=== PATIENT | female | born 1940 | race Caucasian/White ===

== ENCOUNTER 2017-12-29 10:07 | Inpatient (IN) | payer MEDICARE, OTHER, SELFPAY ==
[2017-12-24 09:55] VITALS: BMI 29.6
[2017-12-29] VITALS (13 sets, daily range): BP systolic 128–179; BP diastolic 53–81; PULSE 68–93; RESP 14–18; TEMP 36.1–36.8; O2SAT 93–100; BMI 29.6
--- NOTE | 2017-12-29 | DI.RAD.S_ITS ---
PROCEDURE: XR PELVIS 1-2V INDICATIONS: ORIF RIGHT HIP TECHNIQUE: 1 view of the lower pelvis acquired. COMPARISON: [facility] [place], [place], XR PELVIS WITH LATERAL HIP RIGHT, 11/19/2017, 15:23. FINDINGS: Bones: Patient is status post right hip arthroplasty, with hardware components in expected positions. The hip joint appears congruent. The visualized bony structures appear intact. Soft tissues: Overlying postoperative changes are noted. No suspicious soft tissue densities. IMPRESSION: Right hip prosthesis in anatomic alignment. Dictated by: Alvaro Tejada M.D. on 12/29/2017 at 14:10 Approved by: Alvaro Tejada M.D. on 12/29/2017 at 14:11
[2017-12-29] MEDS: LACTATED RINGERS 1,000 ML 42 ML IV ×2 (10:49→13:01)
[2017-12-29] MEDS: ACETAMINOPHEN 325 MG TABLET 975 MG PO (10:49)
[2017-12-29] MEDS: CELECOXIB 200 MG CAPSULE PO (10:50)
--- NOTE | 2017-12-29 11:47 | SUR.PREOP ---
SPOKE WITH DR. RINCON REGARDING CURRENT ORDER FOR ANCEF IN RELATION TO PT ALLERGY TO PCN. PER DR. RINCON OK TO CONTINUE WITH CURRENT PLAN TO USE ANCEF. COMMUNICATED THIS WITH CIRCULATING RN.
--- NOTE | 2017-12-29 11:50 | PM.PREOP ---
Pre-operative Note Interval Note Pre-op Check: History & Physical Reviewed by Physician and Changes
[2017-12-29] MEDS: CEFAZOLIN 1 GM VIAL IV ×2 (12:14→12:53)
[2017-12-29] MEDS: TRANEXAMIC ACID 1,000 MG VIAL 1000 MG INJ ×3 (12:30→13:13)
--- NOTE | 2017-12-29 12:48 | SUR.OPER ---
Left Lateral on padded OR bed. Gel axillary roll. Arms secured on padded armboard with pillow supporting top arm. Padded hip positioner braces x4 - anterior and posterior chest and pelvis. Additional gel pad used anterior pelvis. Gel pad under bottom leg from knee to foot and secured with tape over sheet.
[2017-12-29] MEDS: BUPIVACAINE LIPOSOME 266 MG/20 ML VIAL INJ ×2 (12:55)
--- NOTE | 2017-12-29 13:39 | SUR.OPER ---
right groin fold skin tears x3 noted, each approximately 1-2 long. Also, left abdominal fold skin tear noted, approximately [address] Davies noticed during patient positioning.
--- NOTE | 2017-12-29 14:07 | P.OP_ITS ---
Operative Date/Time/Diagnoses - Date of procedure: 12/29/17 Time of procedure: 14:01 Post-op diagnosis: same Procedure & Clinicians Procedure: Right total hip arthroplasty (CPT code 20976 with transportation assistant) Same procedure as scheduled: Yes Indications: Patient is an 77-year-old female with severe right hip DJD. The patient has pain with activities and at rest, limited ambulation and activity tolerance, difficulties with ADLs, and failure of conservative treatment. We have discussed the nature of condition, treatment options, risks and benefits, and patient elects to proceed with total hip arthroplasty and gives informed consent. Surgeon: Adan Davies Dealer Compliance Representative: Crow Echavarria Anesthesia Type: General and Spinal Operative Notes Closure Type: primary Specimen(s): none sent Implants & Drains: Acetabulum: Scott [employer]hew R3 acetabular component size 52 mm Femoral component: Scott [employer]hew Synergy stem size 12 with standard offset Femoral head: 36 mm + 0 cobalt chrome Estimated Blood Loss (mL): 100 Blood products transfused: none Procedure in detail: After satisfaction induction of anesthetic, and administration of IV antibiotics, the patient was positioned in the lateral decubitus position with all bony prominences well padded and pelvic position secured using a hip associate dentist positioning device. Right hip and lower extremity prepped and draped in the usual sterile fashion, 1st dose of intravenous tranexamic acid was administered, then a longitudinal incision was created centered over the greater trochanter and carried sharply through the skin and subcutaneous tissues down to the fascia hunter which was divided longitudinally and retracted with a Charnley retractor. External rotators visualize, cut, tagged, and retracted posteriorly, then the capsule was cut in a T-type fashion with the corners tagged and retracted. Hip was dislocated and femoral neck cut made according to preoperative templating. Acetabular retractors then placed, and the acetabular labrum and osteophytes were excised. The acetabulum was then sequentially reamed to 51 mm with an excellent circumferential ream and fit with the trial. The trial component was removed and a permanent size 52 mm Scott and Nephew R3 acetabular component was selected, positioned, and impacted with satisfactory position and fixation achieved. Permanent liner was then inserted with the elevated lip directed posteriorly. Soft tissue then removed off the lateral femoral neck in the lateral neck was entered using a box osteotome. T-handled reamers placed down the canal followed by sequential broaching to 12 with the final broach left in place for trial reduction which demonstrated excellent leg length, range of motion, and stability characteristics with a 36 mm +0 trial ball. The trial and broach were removed, and a permanent size 12 Scott and Nephew Synergy stem was selected and inserted with excellent position and fixation achieved. Another trial reduction yielded the above characteristics so the trial ball was exchanged for a permanent 36 mm +0 cobalt chrome ball. The hip was irrigated and reduced and excellent leg length range of motion and stability characteristics were achieved and maintained. Periarticular tissues were infiltrated with Exparel. The hip was copiously irrigated, and the capsule repaired with #2 Ethibond, and the piriformis was repaired back to the greater trochanter with the same. Fascia hunter closed with interrupted #1 Ethibond sutures, and the subcutaneous tissues were closed in 2 layers of 0 Vicryl and 2 0 Vicryl. Skin was closed with davis and sterile dressings applied. Second dose of tranexamic acid was administered intravenously, and the anesthetic was terminated. Complications: none Condition: stable Disposition: PACU Plan for aftercare: Patient will be admitted to the acute care [facility], and anticipate discharge on postop day 1-2 with follow-up in office in 10-14 days. Outpatient physical therapy will be arranged and patient will continue to observe posterior hip precautions. Patient will continue use of postoperative Lovenox for 10 days postop.
[2017-12-29] MEDS: LACTATED RINGERS 1,000 ML 100 ML IV ×2 (15:03→15:05)
--- NOTE | 2017-12-29 15:07 | PC.NURSE ---
POST OP ARRIVAL 1440 - arrived awake, states no pain at this time, pt has sensation at lower groin, starting to feel some sensation r upper thigh, unable to wiggle r toes, can move l foot and ankle wave, zinc furnace charger showed where pt had a drape at her abd skin fold and top of r thigh that left a small slit like tear, placed some antibiotic ointment l fold, r open to air, has bulky surgical barrier dsg r thigh, ra 96%, hr 72, prince ice chips, scd placed.
[2017-12-29] MEDS: ONDANSETRON 4 MG ODT PO ×2 (16:51→21:24)
--- NOTE | 2017-12-29 17:40 | PC.NURSE ---
Addendum entered by Wilma Bruce R.N. 12/29/17 22:45: At 2030 patient reported need to void. Reports numb from waist to knee, can feel sensation of nurse hand on her leg. Also reports pain increasing to 6 or 7/10. Medicated with one percocet per prn orders. Due to numbness and pain, we attempted bedpan. She was unable to void, she cryed during repositioning to get her onto bedpan. After rest period became calm again. Bladder scan = >999. Ely placed, she tolerated procedure well. At 2100 reported pain only a 0.5. 2215: Reporting nausea, saying this happens every time I take pain medication. Reglan 10 mg given IV. Since then she has been dozing with flacc scale of zero. Original Note: Karyna awake, Ox3, drowsy and c/o dizziness & nausea if I sit up at all. Scheduled Zofran given late as pharmacy did not stock drawer until after 1600. HOB laid to 8 degrees from [id number], now sitting up at 45 degrees & denies dizziness or nausea. Refuses any PO intake other than ice chips at this time. C/o slight sore throat, post-op teaching explained. Refused hard candy and said that ice chips help. Right hip drsg is CDI, reports numbness & weakness to both legs, can wiggle toes & move feet slightly. Wearing bilateral calf SCD's. IV LR infusing at 100 ml/hour, IV to L hand is patent & infusing with no difficulty. Pt denied pain. I talked with her about pain med options & pain mgmt teaching, she said oh no, I can't take pills -- for all my surgeries they give me shots or something thru the IV. Said last surgery 40 years ago. Post-op teaching & med management explained, aware of prn orders & instructed to call nurse when she starts feeling pain. I notified on-call surgeon to notify that there were no post-op antibiotics scheduled on AUG, Rossy JACOB gave orders for 2 doses of IV Ancef q8 hours apart. On my AUG screen I cannot see that Ancef was given in operative setting, but our pharmacist Gadiel able to clarify that Ancef was given prior to surgery.
[2017-12-29] MEDS: ACETAMINOPHEN 325 MG TABLET 650 MG PO (18:32)
[2017-12-29] MEDS: OXYCODONE/ACETAMINOPHEN 5/325 TABLET 1 TAB PO (20:12)
[2017-12-29] MEDS: CEFAZOLIN 1 GM/50 ML FROZ.PIGGY IV (20:27)
[2017-12-29] MEDS: DOCUSATE 100 MG CAPSULE PO (21:23)
[2017-12-29] MEDS: METOCLOPRAMIDE 10 MG/2 ML INJ IV (22:21)
[2017-12-30] VITALS (8 sets, daily range): BP systolic 103–153; BP diastolic 46–72; PULSE 62–69; RESP 16–25; TEMP 35.8–37.4; O2SAT 93–98
[2017-12-30] MEDS: ONDANSETRON 4 MG ODT PO (00:12)
[2017-12-30] MEDS: hydrOXYzine pamoate 25 MG CAPSULE PO ×3 (00:49→21:09)
[2017-12-30] MEDS: LACTATED RINGERS 1,000 ML 100 ML IV (01:50)
[2017-12-30] MEDS: ACETAMINOPHEN 325 MG TABLET 650 MG PO (04:16)
[2017-12-30] MEDS: CEFAZOLIN 1 GM/50 ML FROZ.PIGGY IV (04:17)
[2017-12-30] MEDS: OXYCODONE/ACETAMINOPHEN 5/325 TABLET 1 TAB PO ×3 (05:53→19:33)
[2017-12-30 05:56] LABS: Hematocrit 36.6 % (36-46); Hemoglobin 12.4 g/dL (12.0-16.0)
--- NOTE | 2017-12-30 06:43 | PC.NURSE ---
Shift note [id number] Pt complained of nausea at start of shift. Pt reports pain level around 2- 3throughout shift. Provided pt 1 tab oxycodone.
[2017-12-30] MEDS: LOSARTAN 25 MG TABLET PO (08:17)
[2017-12-30] MEDS: DOCUSATE 100 MG CAPSULE PO ×2 (08:17→21:09)
[2017-12-30] MEDS: ENOXAPARIN 40 MG/0.4 ML SYRINGE SUBCUT (08:18)
--- NOTE | 2017-12-30 09:33 | PC.NURSE ---
AM Shift IV fluids continue to evaluate breakfast PO intake. Ely draining to gravity and will assess need for removal after AM PT session. Patient apprehensive about narcotic pains pains due to previous surgery where she was severely nauseated. Spoke to her about her pain management options.
--- NOTE | 2017-12-30 11:34 | PT.IIE ---
Current Diagnoses Unilateral primary osteoarthritis, right hip (12/29/17) Surgery Performed Operation Date: 12/29/17 11:45 Actual Procedures p Total Hip Arthroplasty(Right) - Adan Davies MD Surgical History (Last Updated 12/24/17 @ 10:16 by Saskia Yepez RN) History of partial hysterectomy (Acute) Hx of cholecystectomy (Acute) Hx of tubal ligation (Acute) Medical History (Last Updated 12/24/17 @ 10:16 by Saskia Yepez RN) Anxiety (Acute) Arthritis (Acute) Bipolar 1 disorder (Acute) Depression (Acute) Easy bruisability (Acute) HTN (hypertension) (Acute) Hypoglycemia (Acute) Nausea (Acute) Pneumonia (Acute) Sinusitis (Acute) Physical Therapy Inpatient Evaluation/Re-Eval Medical Review Prior Functional Status Medical History Reviewed Yes Diet/Fluid Consistency Regular Communication no known deficits Mobility and Gait mod ind with FWW inside her home and 4WW outside her home, but was really struggling to walk [place] to the dining olmos. Prior Functional Level (Other details) denies any falls in the past few years Social History Household Members none Living Arrangements [facility]dc Facility Number of Floors (Floors) One Floor Number of Stairs To Enter/Railing? 0STE Home Environment Standard Height Toilet Walk in Shower Home Equipment Front Wheel Walker Four Wheel Walker Straight Cane Sock Aid Hospital Bed Employment Status Retired Additional Social History Comment Lives at [facility] in a stand alone [facility], reports it takes about 10 minutes to walk to the dining olmos for meals. Physical Therapy Current Condition Current Condition Evaluation Date 12/30/17 Treatment Diagnosis R post KAE Onset Date 12/29/17 Precautions Posterior Hip Precautions No Hip Flexion > 90 degrees No Hip Internal Rotation No Hip Adduction Weight Bearing Status Weight Bearing Status Weight Bear as Tolerated Subjective Physical Therapy Visit Type Type Initial Evaluation Visit Start Time 08:40 Visit Stop Time 10:40 Total Visit Minutes 85 Notes Total morning session was split into two shorter sessions Physical Therapy Visit Comments Patient Comments Pt reports doing well, minimal pain at rest, ready to get going. Patient/Caregiver Goals Pt hoping to be able to go to rehab unless she's completely independent by time of discharge. Pt concerned as she has a long way to walk for meals and doesn't have anyone to come stay with her to help. Therapy Pain Assessment Pain When Pain Assessed During Mobility Pain Present Pain Present Pain Reported Location Right Lateral Hip Intensity 6 Scale Used Numeric (1 - 10) Description Aching Dull Tender Throbbing Pain Behaviors Wincing Pain Management Techniques Apply Cold Modification of Treatment Re-positioning Timing of Activity with Medications PT-Bed Mobility Assessment Supine to Sit Supine to Sit Minimal Assistance Scooting Scooting to Edge of Bed Minimal Assistance PT-Transfer Assessment Sit to and From Stand Sit to and from Stand Contact Guard Assistance 1 Person Assistance Use of Upper Extremities Equipment Transfer Assistive Device Gait Belt Front Wheeled Walker Transfers Transfer Destination Chair Transfer Technique Stand Step Pivot Transfer Ability Level of Assist Contact Guard Assistance 1 Person Assistance Use of Upper Extremities Comments Mobility Comments Pt needing cues to get close enough to the chair before sitting down but was otherwise very stable on her feet and only needed CGA. Gait Assessment Gait Gait Assistance Required: Contact Guard Assist Distance (Feet) (feet) 10 Assistive Devices Assistive Device Gait Belt Front Wheeled Walker Gait Deviations General Gait Pattern Antalgic Decreased Stride Length Decreased Feet Clearance Step-to Gait Factors Limiting Gait Function Factors Limiting Gait Function Decreased Strength Pain Comments Gait Comments Pt hesistant to put more weight through the RLE but able to compensate well with BUE on walker. After taking a few steps pt was allowing more weight through the RLE but definitely still babying it. Pt needing to use step-to gait pattern due to pain and weakness, but remained very steady while walking. Pt declined to try to walk further at this time. Stair Climbing Assessment Comments Stair Climbing Comments not assessed PT-Balance Assessment Sitting Balance and Reactions Static Sitting Balance Ability Normal Dynamic Sitting Balance Ability Good Standing Balance and Reactions Static Standing Balance Ability Good Dynamic Standing Balance Ability Fair Device Used FWW Orientation Orientation/Cognition Level of Alertness Alert Orientation Name Age Birthday Month Date Year Day of Week Place Situation Language Function Ability No Deficits Noted Safety Awareness Understands Safety Issues Memory Description No Deficits Noted Gross Range of Motion Upper Extremity ROM Assessment Within Functional Limits Lower Extremity ROM Impairments WFL as allowed by post hip precautions Strength Upper Extremity Strength Assessment Within Functional Limits Comments Strength Comments BLE strength not tested, but LLE WFL and RLE significantly limited by pain Physical Therapy Treatment Exercises Exercises Ankle Pumps Gluteal Sets Quad Sets Heel Slides Supine Hip Abduction Education Education Provided Precautions Weight Bearing Status Post-Op Packet Safety PT Summary Assessment and Plan Potential Rehabilitation Potential Good Status of Condition at Evaluation Evolving Summary Impairments Pain Strength Balance Bed Mobility Transfers Gait Activity Tolerance Progress Towards Goals Progressing Toward Goals Assessment Summary POD#1 R post KAE. Pt is able to mobilize well once out of bed but definitely needs assist for bed mobility. Pt's walking tolerance and quality is impaired at this time, making pt unsafe to be mobilizing without assistance. Pt does have potential for functional improvement but is not safe to discharge home at this time. It is recommended for pt to continue participating in acute PT with transition to SNF rehab prior to return home. Patient does have potential to discharge directly home, but it will depend on how quickly the patient progresses, especially with gait tolerance. Goals Bed Mobility Goal Independent Transfer Goal Independent Front Wheeled Walker Four Wheeled Walker Gait Goal Independent Front Wheel Walker Four Wheel Walker Gait Distance community distances over 300ft Days to Meet Goals 3 Frequency of Treatment Frequency Of Treatment Twice a Day Treatment Plan Physical Therapy Treatment Plan Bed Mobility Training Transfer Training Gait Training Therapeutic Exercise Discharge Planning Other Recommendations and Next Treatment progress gait distance, work Focus on bed mobility Recommendations To Nursing Amount of Assist Needed 1 Person Assist Discharge Recommendations PT Discharge Recommendations SNF Rehab
--- NOTE | 2017-12-30 15:03 | P.PN_ITS ---
Subjective Date Patient Seen: 12/30/17 Time Patient Seen: 15:00 Interval history: POD #1 status post right total hip arthroplasty with Dr. Davies. Her pain is well controlled. She has increased pain with ambulation with physical therapy. She is taking Lovenox for DVT prophylaxis. She lives alone and discussed with Dr. Davies in clinic that she would likely need [facility] for continued care as she has in the past after procedures. Ely was placed last night for urinary retention. She has a history of urinary retention. Denies chest pain, or shortness breath. Exam Vital Signs (past 8 hours): - 12/30/17 07:25 12/30/17 08:17 12/30/17 11:30 Temperature 98.4 F 98.1 F Pulse Rate 65 65 69 Respiratory Rate 17 16 Blood Pressure 147/69 H 153/65 H 135/64 H Pulse Oximetry 98 97 Oxygen Delivery Method Nasal Cannula Oxygen Flow Rate 2 Narrative Exam Narrative: Patient sitting up in bed in no acute distress. She is alert and oriented x3. Dressing on right hip is CDI. Calves are soft, compressible, nontender bilaterally pulses are symmetrical. Sensation intact to light touch throughout bilateral lower extremities. She is able to actively dorsiflex and plantar flex. Objective Labs Result Diagrams: 12/30/17 05:42 Labs: Laboratory Results - last 24 hr 12/30/17 05:42 Hgb 12.4 Hct 36.6 Assessment & Plan Post-op (1) S/P total hip arthroplasty: Current Visit: Yes Status: Acute (2) Urinary retention: Current Visit: Yes Status: Acute Postoperative Procedures Operation Date: 12/29/17 11:45 Actual Procedures Side Surgeon p Total Hip Arthroplasty Right Adan Davies MD POD #1 status post right total hip arthroplasty with Dr. Davies. Given her history of urinary retention in the past, will leave Ely in place until tomorrow morning. Continue current pain management. Continue ambulation with physical therapy. Continue Lovenox for DVT prophylaxis. Will anticipate patient needing SNF, will continue to follow. Discharge possibility of SNF versus home health services. Time Spent With Patient less than 15 minutes
--- NOTE | 2017-12-30 15:14 | CM.DANOTE ---
DCP/Assessment: Reviewed chart. Patient is a 77yr old female admitted to [facility] for elective right KAE performed on 12-29-[address] Davies. Primary payor is 1)Medicare 2)Commercial. PCP is Dr. Dodge. Met with patient explained CM/SW role. Patient alert and oriented, eating lunch at time of visit. Patient reports that she lives independently at [facility] in [place]. Patient indicates that she plans to go to SNF for rehab at time of d/c from [facility] CHAUFFEUR MOTORBUS reviewed Dr. Davies's progress note indicating patient most likely to d/c home within next 1-2dys. Patient reports that's wrong, I'm going to rehab. Notified patient that under Medicare guidelines she would need to qualify for SNF and meet all requirements. Patient reports that I will. SNF list left with patient to review for SNF choice if requirements met. Reviewed PT note from today. Current recommendation is SNF. Spoke with PA/Dixie from orthopedic group. She is aware of patient's desire to go to SNF and is in agreement that patient will have to qualify. At this time Dixie reports that patient has urinary retention and she anticipates that patient most likely will remain hospitalized for 3 midnights. Dixie reports that she will discuss further with Dr. Davies re: patient's preference in d/c plan vs. meeting insurance requirements. P: Pending. CM team to follow up with patient on 12-31-17 re: SNF choice. RUTH Oconnor Discharge Planning/Care Management CM Discharge Assessment Start: 12/30/17 15:12 Freq: Status: Active Protocol: Document 12/30/17 15:12 CHRIS (Rec: 12/30/17 15:14 CHRIS [id number]) Discharge Planning Assessment Assigned Manager User Experience RUTH/Paz History Provided By Patient Has Patient been admitted in last 30 No days? Prior Living Arrangements Long Term Facility Household Members none Willing to Return to Facility? [facility] Independent with ADL's Yes Is patient alert and oriented? Yes DME Already Rented / Owned FWW / Walker Patient Discharge Plan Description Fdc Facility Discharge Plan Fdc Facility If patient plan is SNF: Has PASSR been No completed? Review Status In Process Next Review Type Continued Stay Review
--- NOTE | 2017-12-30 15:34 | PT.IPTN ---
Current Diagnoses Unilateral primary osteoarthritis, right hip (12/29/17) Retention of urine, unspecified (12/29/17) Presence of unspecified artificial hip joint (12/29/17) Surgery Performed Operation Date: 12/29/17 11:45 Actual Procedures p Total Hip Arthroplasty(Right) - Adan Davies MD Physical Therapy Treatment Note Physical Therapy Current Condition Current Condition Evaluation Date 12/30/17 Treatment Diagnosis R post KAE Onset Date 12/29/17 Precautions Posterior Hip Precautions No Hip Flexion > 90 degrees No Hip Internal Rotation No Hip Adduction Weight Bearing Status Weight Bearing Status Weight Bear as Tolerated Subjective Physical Therapy Visit Type Type Treatment Note Visit Start Time 14:15 Visit Stop Time 15:00 Total Visit Minutes 45 Physical Therapy Visit Comments Patient Comments Pt reports getting cranky after having to sit up in her chair without being able to recline the backrest (pt recliner is broken). A new recliner is now in pt's room. Therapy Pain Assessment Pain When Pain Assessed During Mobility Pain Present Pain Present Pain Reported Location Right Lateral Hip Intensity 6 Scale Used Numeric (1 - 10) Description Aching Dull Tender Throbbing Pain Behaviors Wincing Pain Management Techniques Apply Cold Modification of Treatment Re-positioning Timing of Activity with Medications Physical Therapy Treatment Exercises Exercises Ankle Pumps Gluteal Sets Quad Sets Heel Slides Supine Hip Abduction Short Arc Quads Education Education Provided Precautions Weight Bearing Status Post-Op Packet Safety PT Summary Assessment and Plan Potential Rehabilitation Potential Good Status of Condition at Evaluation Evolving Summary Assessment Summary Pt too tired to get up out of bed this session but agreeable to do exercises in bed. Pt able to perform additional strengthening exercises with much less assist than last session
[2017-12-31 01:10] VITALS: O2SAT 98
[2017-12-31] MEDS: OXYCODONE/ACETAMINOPHEN 5/325 TABLET 1 TAB PO ×5 (01:10→19:26)
--- NOTE | 2017-12-31 02:53 | PC.NURSE ---
Assumed care of pt form outgoing shift at 2300 7-3. Pt asleep at this time. belongings and call light within reach. bed alarm on. side rails upx3. Pt breathing regularly. will continue to monitor 0100- pt called asking for pain medication. pain 6/10, only 3/10 if pt doesn't move leg. IS instructions given with demonstration. and pt able to use Is proficiently now. Pt only able to breathe in about 500-700 on IS measurements. Pt did multiple repetitions. Pt compliant with med pass, denied nausea. given crackers and more water. discussed plan of care for noc with pt. removing foster at 0600 this am. pt verbalized understanding. Pt denied further needs at this time. will continue to monitor pt for safety. belongings and call light within reach.
[2017-12-31 06:04] VITALS: BP 116/54; PULSE 63; RESP 16; TEMP 37; O2SAT 92
[2017-12-31] MEDS: METOCLOPRAMIDE 10 MG/2 ML INJ IV (06:42)
[2017-12-31 07:45] VITALS: BP 118/67; PULSE 63; RESP 16; TEMP 36.6; O2SAT 97
[2017-12-31] MEDS: DOCUSATE 100 MG CAPSULE PO ×2 (08:41→19:28)
[2017-12-31] MEDS: ENOXAPARIN 40 MG/0.4 ML SYRINGE SUBCUT (08:41)
[2017-12-31] MEDS: LOSARTAN 25 MG TABLET PO (08:42)
--- NOTE | 2017-12-31 08:49 | PM.PNPO.1 ---
Subjective Date Patient Seen: 12/31/17 Time Patient Seen: 08:49 Interval history: Patient's pain is moderate to severe. Patient needed Dilaudid this morning to control her pain. Pain currently improved. Denies fever or chills. No nausea vomiting. Patient does not have anybody home to assist her and would like to go to [facility]. Otherwise without complaints this morning. Exam Vital Signs (past 8 hours): - 12/31/17 01:10 12/31/17 06:04 12/31/17 07:45 Temperature 98.6 F 97.9 F Pulse Rate 63 63 Respiratory Rate 16 16 Blood Pressure 116/54 L 118/67 Pulse Oximetry 98 92 97 Oxygen Delivery Method Room Air Oxygen Flow Rate 0 Narrative Exam Narrative: Pleasant 77-year-old female having breakfast in bed in no apparent distress. Right hip dressing is clean, dry and intact. Motor functions intact distal right lower extremity. Sensation intact to light touch right lower extremity. Objective Labs Result Diagrams: 12/30/17 05:42 Assessment & Plan Post-op Postoperative Procedures Operation Date: 12/29/17 11:45 Actual Procedures Side Surgeon p Total Hip Arthroplasty Right Adan Davies MD POD 2:Patient progressing slower than expected status post right total hip arthroplasty. Secondary to pain issues and lower extremity weakness the patient has not progressed as expected with rehab. She will mobilize with physical therapy today. Likely discharge to [facility] tomorrow. Time Spent With Patient less than 15 minutes
--- NOTE | 2017-12-31 08:53 | P.PN_ITS ---
Subjective Date Patient Seen: 12/31/17 Time Patient Seen: 08:49 Interval history: Patient's pain is moderate to severe. Patient needed Dilaudid this morning to control her pain. Pain currently improved. Denies fever or chills. No nausea vomiting. Patient does not have anybody home to assist her and would like to go to long-term facility for rehab. Otherwise without complaints this morning. Exam Vital Signs (past 8 hours): - 12/31/17 01:10 12/31/17 06:04 12/31/17 07:45 Temperature 98.6 F 97.9 F Pulse Rate 63 63 Respiratory Rate 16 16 Blood Pressure 116/54 L 118/67 Pulse Oximetry 98 92 97 Oxygen Delivery Method Room Air Oxygen Flow Rate 0 Narrative Exam Narrative: Pleasant 77-year-old female having breakfast in bed in no apparent distress. Right hip dressing is clean, dry and intact. Motor functions intact distal right lower extremity. Sensation intact to light touch right lower extremity. Objective Labs Result Diagrams: 12/30/17 05:42 Assessment & Plan Post-op Postoperative Procedures Operation Date: 12/29/17 11:45 Actual Procedures Side Surgeon p Total Hip Arthroplasty Right Adan Davies MD POD 2:Patient progressing slower than expected status post right total hip arthroplasty. Secondary to pain issues and lower extremity weakness the patient has not progressed as expected with rehab. She will mobilize with physical therapy today. Likely discharge to long-term facility tomorrow. Time Spent With Patient less than 15 minutes
--- NOTE | 2017-12-31 11:17 | PT.IPTN ---
Current Diagnoses Unilateral primary osteoarthritis, right hip (12/29/17) Retention of urine, unspecified (12/29/17) Presence of unspecified artificial hip joint (12/29/17) Surgery Performed Operation Date: 12/29/17 11:45 Actual Procedures p Total Hip Arthroplasty(Right) - Adan Davies MD Physical Therapy Treatment Note M2 PT-IP Current Condition Start: 12/30/17 11:08 Freq: NEEDED Status: Active Protocol: Document 12/31/17 11:05 [facility] (Rec: 12/31/17 11:14 [facility] [id number]) Physical Therapy Current Condition Current Condition Evaluation Date 12/30/17 Treatment Diagnosis R post KAE Onset Date 12/29/17 Precautions Posterior Hip Precautions No Hip Flexion > 90 degrees No Hip Internal Rotation No Hip Adduction Weight Bearing Status Weight Bearing Status Weight Bear as Tolerated M3 PT-IP Subjective Start: 12/30/17 11:08 Freq: NEEDED Status: Active Protocol: Document 12/31/17 11:05 [facility] (Rec: 12/31/17 11:14 [facility] [id number]) Subjective Physical Therapy Visit Type Type Treatment Note Visit Start Time 10:00 Visit Stop Time 10:45 Total Visit Minutes 45 Number of FRONT SIGHT ATTACHER Visits 0 Physical Therapy Visit Comments Patient Comments Karyna reports she needs to get up and use the commode as catheter was taken out earlier this am Patient/Caregiver Goals The patients goals continue to be SNF rehab Therapy Pain Assessment Pain When Pain Assessed During Mobility Pain Present Pain Present Pain Reported Location Right Lateral Hip Intensity 6 Scale Used Numeric (1 - 10) Description Aching Dull Tender Throbbing Pain Behaviors Wincing Pain Management Techniques Apply Cold Modification of Treatment Re-positioning Timing of Activity with Medications M4 PT-IP Mobility and Gait Start: 12/30/17 11:08 Freq: NEEDED Status: Active Protocol: Document 12/31/17 11:05 [facility] (Rec: 12/31/17 11:14 [facility] [id number]) PT-Bed Mobility Assessment Supine to Sit Supine to Sit Minimal Assistance Scooting Scooting to Edge of Bed Minimal Assistance PT-Transfer Assessment Sit to and From Stand Sit to and from Stand Contact Guard Assistance 1 Person Assistance Use of Upper Extremities Equipment Transfer Assistive Device Gait Belt Front Wheeled Walker Transfer Ability Level of Assist Contact Guard Assistance 1 Person Assistance Use of Upper Extremities Comments Mobility Comments improved mobility and good awareness this am of backing up to chair. Needs verbal cues to stand up straight as she tends to lean forward on the walker Gait Assessment Gait Gait Assistance Required: Contact Guard Assist Distance (Feet) (feet) 10 Assistive Devices Assistive Device Gait Belt Front Wheeled Walker Gait Deviations General Gait Pattern Antalgic Decreased Stride Length Decreased Feet Clearance Step-to Gait Factors Limiting Gait Function Factors Limiting Gait Function Decreased Strength Pain Comments Gait Comments improved ability to place weight through the right LE today PT-Balance Assessment Sitting Balance and Reactions Static Sitting Balance Ability Normal Dynamic Sitting Balance Ability Good Standing Balance and Reactions Static Standing Balance Ability Good Dynamic Standing Balance Ability Fair Device Used FWW M5 PT-IP Objective Assessments Start: 12/30/17 11:08 Freq: NEEDED Status: Active Protocol: Document 12/31/17 11:05 [facility] (Rec: 12/31/17 11:14 [facility] [id number]) Gross Range of Motion Lower Extremity ROM Impairments WFL as allowed by post hip precautions M6 PT-IP Treatment Start: 12/30/17 11:08 Freq: NEEDED Status: Active Protocol: Document 12/31/17 11:05 [facility] (Rec: 12/31/17 11:14 [facility] [id number]) Physical Therapy Treatment Exercises Exercises Ankle Pumps Gluteal Sets Quad Sets Heel Slides Supine Hip Abduction Short Arc Quads Education Education Provided Precautions Weight Bearing Status Post-Op Packet Safety Other Treatments Other Treatment Performed transfer from the bed to sitting at edge of bed, sit- stand with CGA, the patient ambulated a few steps to bedside commode and transfered to sitting with CGA, she sat for 10 minutes on the commode, she restood to adjust the commode height and then sat again to try and void. Then sit-stand with fww and gait in room. Transfer to the bedside chair and legs were elevated , pillow was placed between knees and call light was given to the patient M7 PT-IP Assessment and Plan Start: 12/30/17 11:08 Freq: NEEDED Status: Active Protocol: Document 12/31/17 11:05 [facility] (Rec: 12/31/17 11:14 [facility] [id number]) PT Summary Assessment and Plan Potential Rehabilitation Potential Good Status of Condition at Evaluation Evolving Summary Impairments Pain Strength Balance Bed Mobility Transfers Gait Activity Tolerance Progress Towards Goals Progressing Toward Goals Assessment Summary POD#2 R post KAE. Pt is able to mobilize well to get out of bed and is doing better with transfers. She is aware of her hip precautions. Pt's walking tolerance and quality is impaired at this time, making pt unsafe to be mobilizing without assistance. Pt does have potential for functional improvement but is not safe to discharge home at this time. It is recommended for pt to continue participating in acute PT with transition to SNF rehab prior to return home. Goals Bed Mobility Goal Independent Transfer Goal Independent Front Wheeled Walker Four Wheeled Walker Gait Goal Independent Front Wheel Walker Four Wheel Walker Gait Distance community distances over 300ft Days to Meet Goals 3 Frequency of Treatment Frequency Of Treatment Twice a Day Treatment Plan Physical Therapy Treatment Plan Bed Mobility Training Transfer Training Gait Training Therapeutic Exercise Discharge Planning Other Recommendations and Next Treatment progress gait distance, work Focus on bed mobility Recommendations To Nursing Amount of Assist Needed 1 Person Assist Discharge Recommendations PT Discharge Recommendations SNF Rehab
--- NOTE | 2017-12-31 12:04 | CM.DPC ---
Addendum entered by RUTH Cooper 12/31/17 12:22: ADD: Per [facility], [facility] can accept the pt at discharge. SW updated pt bedside and pt very appreciative. Plan: SW to follow for d/c to [facility] when medically stable, possibly tomorrow . RUTH Cooper Original Note: DCP Cont: Per Ortho MD, pt likely needing SNF tomorrow if medically stable. Per PT, recommending SNF rehab prior to return home to [facility]. SW met bedside with pt and explained role and followed up on previous SW discussion with pt on SNF rehab and SNF Choice List. Pt confirms that her preference is SNF before safe d/c back home. Pt states that she and her daughter reviewed the SNF Choice List and preference is 1) [facility] 2)[facility]. SW inquired about updating her Dtr Laura ([phone]) and pt declined stating her Dtr has a big 31 December republican she's hosting today and pt will update her via phone herself. SW called [facility] admissions with new referral and faxed clinicals for review and completed PASRR. Plan: SW to follow for [facility] review of pt for possible placement tomorrow if medically stable. RUTH Cooper
--- NOTE | 2017-12-31 14:10 | PT.IPTN ---
Current Diagnoses Unilateral primary osteoarthritis, right hip (12/29/17) Retention of urine, unspecified (12/29/17) Presence of unspecified artificial hip joint (12/29/17) Surgery Performed Operation Date: 12/29/17 11:45 Actual Procedures p Total Hip Arthroplasty(Right) - Adan Davies MD Physical Therapy Treatment Note M2 PT-IP Current Condition Start: 12/30/17 11:08 Freq: NEEDED Status: Active Protocol: Document 12/31/17 11:05 [facility] (Rec: 12/31/17 11:14 [facility] [id number]) Physical Therapy Current Condition Current Condition Evaluation Date 12/30/17 Treatment Diagnosis R post KAE Onset Date 12/29/17 Precautions Posterior Hip Precautions No Hip Flexion > 90 degrees No Hip Internal Rotation No Hip Adduction Weight Bearing Status Weight Bearing Status Weight Bear as Tolerated M3 PT-IP Subjective Start: 12/30/17 11:08 Freq: NEEDED Status: Active Protocol: Document 12/31/17 14:10 [facility] (Rec: 12/31/17 15:30 [facility] [id number]) Subjective Physical Therapy Visit Type Type Treatment Note Visit Start Time 13:45 Visit Stop Time 14:10 Total Visit Minutes 25 Number of [employer]MENTARY [employer] REGIST[employer]AR Visits 1 Physical Therapy Visit Comments Patient Comments Pt states that she needs to use the bathroom. Therapy Pain Assessment Pain When Pain Assessed During Mobility Pain Present Pain Present Pain Reported Location Right Lateral Hip Intensity 7 Scale Used Numeric (1 - 10) Pain Behaviors Guarding Moaning Wincing Pain Management Techniques Apply Cold Re-positioning M4 PT-IP Mobility and Gait Start: 12/30/17 11:08 Freq: NEEDED Status: Active Protocol: Document 12/31/17 14:10 [facility] (Rec: 12/31/17 15:30 [facility] [id number]) PT-Transfer Assessment Sit to and From Stand Sit to and from Stand Contact Guard Assistance Minimal Assistance 1 Person Assistance Use of Upper Extremities Equipment Transfer Assistive Device Gait Belt Front Wheeled Walker Transfers Transfer Destination Chair Toilet Transfer Ability Level of Assist Contact Guard Assistance 1 Person Assistance Use of Upper Extremities Comments Mobility Comments Pt need increase in assistance with sit to stand from toilet vs chair. Gait Assessment Gait Gait Assistance Required: Contact Guard Assist Distance (Feet) (feet) 15 Assistive Devices Assistive Device Gait Belt Front Wheeled Walker Gait Deviations General Gait Pattern Antalgic Decreased Stride Length Decreased Feet Clearance Step-to Gait Factors Limiting Gait Function Factors Limiting Gait Function Decreased Strength Pain M5 PT-IP Objective Assessments Start: 12/30/17 11:08 Freq: NEEDED Status: Active Protocol: Document 12/31/17 11:05 [facility] (Rec: 12/31/17 11:14 [facility] [id number]) Gross Range of Motion Lower Extremity ROM Impairments WFL as allowed by post hip precautions M6 PT-IP Treatment Start: 12/30/17 11:08 Freq: NEEDED Status: Active Protocol: Document 12/31/17 14:10 [facility] (Rec: 12/31/17 15:30 [facility] [id number]) Physical Therapy Treatment Exercises Exercises Ankle Pumps Gluteal Sets Quad Sets Short Arc Quads Education Education Provided Precautions Weight Bearing Status M7 PT-IP Assessment and Plan Start: 12/30/17 11:08 Freq: NEEDED Status: Active Protocol: Document 12/31/17 14:10 [facility] (Rec: 12/31/17 15:30 [facility] [id number]) PT Summary Assessment and Plan Summary Assessment Summary Pt had increase in pain with mobility. She needed increase in cues for gait technique. Frequency of Treatment Frequency Of Treatment Twice a Day Treatment Plan Physical Therapy Treatment Plan Bed Mobility Training Transfer Training Gait Training Therapeutic Exercise Discharge Planning Other Recommendations and Next Treatment progress gait distance, work Focus on bed mobility Recommendations To Nursing Amount of Assist Needed 1 Person Assist Discharge Recommendations PT Discharge Recommendations SNF Rehab
[2017-12-31 15:35] VITALS: BP 149/77; PULSE 71; RESP 16; TEMP 37.3; O2SAT 95
[2017-12-31 19:40] VITALS: BP 152/74; PULSE 71; RESP 18; TEMP 37.4; O2SAT 93
[2017-12-31 20:35] VITALS: TEMP 37.1
[2018-01-01] MEDS: OXYCODONE/ACETAMINOPHEN 5/325 TABLET 1 TAB PO ×4 (00:13→13:34)
[2018-01-01 00:24] VITALS: BP 151/73; PULSE 73; RESP 16; TEMP 36.7; O2SAT 94
--- NOTE | 2018-01-01 06:05 | PC.NURSE ---
Patient is reluctant to get out of bed without complete dependence on the RN and DIRECTOR OF PERSONNEL. Shifting around in bed is also problematic to the patient who does not make any effort to move. Patient stated she would have a bowel movement in the bed if she did not get her pain medication right away; we then walked her to the bathroom where she then urinated and wanted someone else to wipe for her. Patients pain seems to be more anticipatory than actually currently happening.
[2018-01-01 06:13] VITALS: BP 138/72; PULSE 70; RESP 16; TEMP 36.3; O2SAT 92
--- NOTE | 2018-01-01 06:14 | PC.NURSE ---
Patient asked for pain meds. Said she needed to go to the bathroom but wanted pain meds first. Told RN Meche Wilburn. I told the patient that the nurse was on her way and will be bringing her the pain medication. She said the nurse should hurry because otherwise there will be an awfully big mess to clean up. I reiterated this to the nurse. Meche was getting her up, we were told in report she was a 1 person assist to the C with walker and a gait belt. When I walked in the patient needed more help. I had to lift her and scoot her to the edge of the bed, lifting her weight. We got the patient to the BR (because she said she couldn't use the commode.). Patient needed a lot of help positioning herself on the toilet and made a number of snarky remarks to me while I was helping. I came back when she pulled the pull string (patient wanted privacy to go the bathroom). I explained to her that she was going to need to really try to get herself into bed because I can't total lift her back into bed. Patient said well that doesn't give me a lot of lyudmila in this hospital. I explained that I wanted her to at least try. I just didn't want to get hurt getting into bed. Patient shook her head. She needed me to wipe her. Did so. Got her to the bed and she needed 2 people to get her into bed. She didn't follow directions at all. Instead she wanted us to move her in the bed. And when we asked her for assistance to move her, she often did the opposite. She needs help with all her ADLs.
--- NOTE | 2018-01-01 07:23 | PM.DS.1 ---
History of Present Illness Date Patient Seen: 01/01/18 Time Patient Seen: 07:25 Chief complaint: [place] [id number] Narrative: Patient is seen bedside status post right TKA with Dr. Davies. Patient is postop day 3. She is doing well, her pain is well controlled and she is ready to be discharge to SNF. Discharge Providers Date of admission: 12/29/17 10:07 Primary care physician: Alex Dodge MD Consults: 12/29/17 14:41 Consult to Discharge Planning Routine Comment: Consult to Physical Therapy Evaluate & Treat Comment: Physician Instructions: post op KAE protocol Discharge provider: Nunu Quintero PA-C Summary Discharge Diagnosis: Right hip osteoarthritis Hospital Course: Patient was transferred to the surgical floor status post right KAE on 12/29/17. She is postop day 3. She has been seen by Physical therapy who recommends that she be discharged to SNF. She is stable and ready for discharge on 01/01/2018. Status at Discharge Cognitive/behavioral status at discharge: Alert and oriented x4 Functional status at discharge: uses cane/walker Overall status at discharge: patient is progressing back to baseline Time Spent with Patient Less than 30 minutes Exam Vital Signs (past 8 hours): - 01/01/18 00:24 01/01/18 06:13 Temperature 98.1 F 97.3 F L Pulse Rate 73 70 Respiratory Rate 16 16 Blood Pressure 151/73 H 138/72 H Pulse Oximetry 94 92 Oxygen Delivery Method Room Air Oxygen Flow Rate 0 Narrative Exam Narrative: Patient is a well-developed well-nourished in no acute distress. Patient alert and oriented x3. On exam surgical dressing on the right hip is clean dry and intact. Calf is soft and compressible. She is able to dorsiflex and plantar flex her ankle. She is neurovascularly intact in the right lower extremity. Objective Labs Result Diagrams: 12/30/17 05:42 Discharge Plan Discharge Plan Patient Disposition: SNF Transfer to: [facility] Transportation: Ambulance I certify the postop hospital senior living care is medically necessary on a continuing basis for any conditions for which he/ she received care during this hospitalization.: Yes The receiving facility has agreed to accept transfer and provide medical treatment.: Yes Discharge Med Rec/Prescriptions Prescriptions: New docusate sodium 100 mg Capsule 100 mg PO BID Qty: 0 RF: 0 acetaminophen 325 mg Tablet 650 mg PO Q6HR PRN (Reason: Pain, Mild (1-3)) Qty: 0 RF: 0 hydroxyzine pamoate 25 mg Capsule 25 mg PO Q6HR PRN (Reason: Spasms) Qty: 0 RF: 0 oxycodone-acetaminophen 5-325 mg Tablet 1 tab PO Q4HR PRN (Reason: pain) Qty: 0 RF: 0 enoxaparin [Lovenox] 40 mg/0.4 mL Syringe 40 mg Sub-Q DAILY 5 Days Qty: 0 RF: 0 Continue losartan 25 mg Tablet 25 mg PO DAILY RF: 0 Follow up/Referrals: Keyonna Senior PA-C [Advanced Practioner Clinician] - 01/16/18 1:10 pm ([facility]) Discharge Health Status Multidrug resistant organism: No MDRO MDRO Verified by culture: No Precautions: [place] Provider Discharge Instructions Diet: Diet as Tolerated and Regular Food texture: Regular Activity: WBAT, use walker until cleared by PT. Other treatments: lovenox 40 mg qDay x5 days post-op, then transition to aspirin 81 mg BID x6 weeks Wound Care Report to your healthcare provider any signs of infection, such as:: chills, fever, night sweats, increased pain and unusual drainage Dressing: Keep dressing CDI, reinforce as necessary. Special Rehabilitation Services Reason for rehabilitation: Post-operative therapy Rehab type: Physical therapy and Occupational therapy Restrictions to mobility: Follow posterior hip precautions. Visit Report/Discharge Packet Instructions: DI for Hip Replacement Discharge Data Primary Care Provider: Alex Dodge Attending Provider: Adan Davies Admit Date/Time: 12/29/17 10:07 Quality VTE Deep Vein Thrombosis/Pulmonary Embolism Present on Admission: No
--- NOTE | 2018-01-01 07:26 | P.DS_ITS ---
History of Present Illness Date Patient Seen: 01/01/18 Time Patient Seen: 07:25 Chief complaint: [place] [id number] Narrative: Patient is seen bedside status post right TKA with Dr. Davies. Patient is postop day 3. She is doing well, her pain is well controlled and she is ready to be discharge to SNF. Discharge Providers Date of admission: 12/29/17 10:07 Primary care physician: Alex Dodge MD Consults: 12/29/17 14:41 Consult to Discharge Planning Routine Comment: Consult to Physical Therapy Evaluate & Treat Comment: Physician Instructions: post op KAE protocol Discharge provider: Nunu Quintero PA-C Summary Discharge Diagnosis: Right hip osteoarthritis Hospital Course: Patient was transferred to the surgical floor status post right KAE on 12/29/17. She is postop day 3. She has been seen by Physical therapy who recommends that she be discharged to SNF. She is stable and ready for discharge on 01/01/2018. Status at Discharge Cognitive/behavioral status at discharge: Alert and oriented x4 Functional status at discharge: uses cane/walker Overall status at discharge: patient is progressing back to baseline Time Spent with Patient Less than 30 minutes Exam Vital Signs (past 8 hours): - 01/01/18 00:24 01/01/18 06:13 Temperature 98.1 F 97.3 F L Pulse Rate 73 70 Respiratory Rate 16 16 Blood Pressure 151/73 H 138/72 H Pulse Oximetry 94 92 Oxygen Delivery Method Room Air Oxygen Flow Rate 0 Narrative Exam Narrative: Patient is a well-developed well-nourished in no acute distress. Patient alert and oriented x3. On exam surgical dressing on the right hip is clean dry and intact. Calf is soft and compressible. She is able to dorsiflex and plantar flex her ankle. She is neurovascularly intact in the right lower extremity. Objective Labs Result Diagrams: 12/30/17 05:42 Discharge Plan Discharge Plan Patient Disposition: SNF Transfer to: [facility] Transportation: Ambulance I certify the postop hospital fpc care is medically necessary on a continuing basis for any conditions for which he/ she received care during this hospitalization.: Yes The receiving facility has agreed to accept transfer and provide medical treatment.: Yes Discharge Med Rec/Prescriptions Prescriptions: New docusate sodium 100 mg Capsule 100 mg PO BID Qty: 0 RF: 0 acetaminophen 325 mg Tablet 650 mg PO Q6HR PRN (Reason: Pain, Mild (1-3)) Qty: 0 RF: 0 hydroxyzine pamoate 25 mg Capsule 25 mg PO Q6HR PRN (Reason: Spasms) Qty: 0 RF: 0 oxycodone-acetaminophen 5-325 mg Tablet 1 tab PO Q4HR PRN (Reason: pain) Qty: 0 RF: 0 enoxaparin [Lovenox] 40 mg/0.4 mL Syringe 40 mg Sub-Q DAILY 5 Days Qty: 0 RF: 0 Continue losartan 25 mg Tablet 25 mg PO DAILY RF: 0 Follow up/Referrals: Keyonna Senior PA-C [Advanced Practioner Clinician] - 01/16/18 1:10 pm ( [facility]) Discharge Health Status Multidrug resistant organism: No MDRO MDRO Verified by culture: No Precautions: [place] Provider Discharge Instructions Diet: Diet as Tolerated and Regular Food texture: Regular Activity: WBAT, use walker until cleared by PT. Other treatments: lovenox 40 mg qDay x5 days post-op, then transition to aspirin 81 mg BID x6 weeks Wound Care Report to your healthcare provider any signs of infection, such as:: chills, fever, night sweats, increased pain and unusual drainage Dressing: Keep dressing CDI, reinforce as necessary. Special Rehabilitation Services Reason for rehabilitation: Post-operative therapy Rehab type: Physical therapy and Occupational therapy Restrictions to mobility: Follow posterior hip precautions. Visit Report/Discharge Packet Instructions: DI for Hip Replacement Discharge Data Primary Care Provider: Alex Dodge Attending Provider: Adan Davies Admit Date/Time: 12/29/17 10:07 Quality VTE Deep Vein Thrombosis/Pulmonary Embolism Present on Admission: No
[2018-01-01] MEDS: ENOXAPARIN 40 MG/0.4 ML SYRINGE SUBCUT (08:28)
[2018-01-01] MEDS: DOCUSATE 100 MG CAPSULE PO (08:28)
[2018-01-01] MEDS: LOSARTAN 25 MG TABLET PO (08:28)
[2018-01-01 08:34] VITALS: BP 144/72; PULSE 68; RESP 16; TEMP 36.8; O2SAT 95
--- NOTE | 2018-01-01 10:05 | PT.IPTN ---
Current Diagnoses Unilateral primary osteoarthritis, right hip (12/29/17) Retention of urine, unspecified (12/29/17) Presence of unspecified artificial hip joint (12/29/17) Surgery Performed Operation Date: 12/29/17 11:45 Actual Procedures p Total Hip Arthroplasty(Right) - Adan Davies MD Physical Therapy Treatment Note M2 PT-IP Current Condition Start: 12/30/17 11:08 Freq: NEEDED Status: Active Protocol: Document 12/31/17 11:05 [facility] (Rec: 12/31/17 11:14 [facility] [id number]) Physical Therapy Current Condition Current Condition Evaluation Date 12/30/17 Treatment Diagnosis R post KAE Onset Date 12/29/17 Precautions Posterior Hip Precautions No Hip Flexion > 90 degrees No Hip Internal Rotation No Hip Adduction Weight Bearing Status Weight Bearing Status Weight Bear as Tolerated M3 PT-IP Subjective Start: 12/30/17 11:08 Freq: NEEDED Status: Active Protocol: Document 01/01/18 10:05 GGD (Rec: 01/01/18 10:24 GGD [id number]) Subjective Physical Therapy Visit Type Type Treatment Note Visit Start Time 09:45 Visit Stop Time 10:10 Total Visit Minutes 25 Number of PROCESSING MGR Visits 2 Physical Therapy Visit Comments Patient Comments Pt states she doing better today. Therapy Pain Assessment Pain When Pain Assessed During Mobility Pain Present Pain Present Pain Reported M4 PT-IP Mobility and Gait Start: 12/30/17 11:08 Freq: NEEDED Status: Active Protocol: Document 01/01/18 10:05 GGD (Rec: 01/01/18 10:24 GGD [id number]) PT-Transfer Assessment Sit to and From Stand Sit to and from Stand Contact Guard Assistance 1 Person Assistance Use of Upper Extremities Equipment Transfer Assistive Device Gait Belt Front Wheeled Walker Transfers Transfer Destination Chair Toilet Transfer Ability Level of Assist Contact Guard Assistance 1 Person Assistance Use of Upper Extremities Comments Mobility Comments Pt improved with sit to stand Gait Assessment Gait Gait Assistance Required: Contact Guard Assist Distance (Feet) (feet) 10 Assistive Devices Assistive Device Gait Belt Front Wheeled Walker Gait Deviations General Gait Pattern Antalgic Decreased Stride Length Decreased Feet Clearance Step-to Gait Factors Limiting Gait Function Factors Limiting Gait Function Decreased Strength Pain Comments Gait Comments She need cues for gait pattern M5 PT-IP Objective Assessments Start: 12/30/17 11:08 Freq: NEEDED Status: Active Protocol: Document 12/31/17 11:05 AM[facility] (Rec: 12/31/17 11:14 AMH [id number]) Gross Range of Motion Lower Extremity ROM Impairments WFL as allowed by post hip precautions M6 PT-IP Treatment Start: 12/30/17 11:08 Freq: NEEDED Status: Active Protocol: Document 01/01/18 10:05 GGD (Rec: 01/01/18 10:24 GGD [id number]) Physical Therapy Treatment Exercises Exercises Ankle Pumps Gluteal Sets Quad Sets Short Arc Quads Education Education Provided Precautions Weight Bearing Status M7 PT-IP Assessment and Plan Start: 12/30/17 11:08 Freq: NEEDED Status: Active Protocol: Document 01/01/18 10:05 GGD (Rec: 01/01/18 10:24 GGD [id number]) PT Summary Assessment and Plan Summary Assessment Summary Pt improving slowly with mobility. She need less assist with sit to stand. She had increase in pain with weight bearing. Frequency of Treatment Frequency Of Treatment Twice a Day Treatment Plan Other Recommendations and Next Treatment progress gait distance, work Focus on bed mobility Recommendations To Nursing Amount of Assist Needed 1 Person Assist Discharge Recommendations PT Discharge Recommendations SNF Rehab
[2018-01-01 11:30] VITALS: BP 142/66; PULSE 60; RESP 16; TEMP 36.9; O2SAT 94
--- NOTE | 2018-01-01 15:26 | PC.NURSE ---
1445 Pt to transfer to [facility] via w/c van at approx 1630 today. Pt farah been OOb to [facility] w/assist of one/& walker. po pain meds, w/good relief of inc pain. Pt w/good appetite, pleasant. dcd bulky drsg, coversite Dressing applied to R hip inc site, davis intact.
[2018-01-01 15:30] VITALS: BP 122/67; PULSE 70; RESP 18; TEMP 36.9; O2SAT 95
--- NOTE | 2018-01-01 15:30 | CM.DPNOTE ---
DC NOte: Coordinated the final details of pt's DC to [facility] today. DC order to SNF in place. Leticia from [facility], filling in for Denisse, arranged cabulance for [phone] p/u ( the only time available today). Faxed completed DC ppk, including PASSR and signed med list. Pt aware and agreeable to above plan. JW
--- NOTE | 2018-01-01 17:36 | PC.NURSE ---
Transportation arrived to , patient in stable condition. Awake and alert, looking forward to further her recovery at [facility], her son is already waiting for her arrival at the location. Transfer packet given to transport staff.
== END 2018-01-01 17:37 | DRG 470 ==
PROVIDERS: Admitting Provider Orthopaedic Surgery; PCP Family Medicine; Visit Provider Orthopaedic Surgery
PROC: 0SR90JZ Replacement of Right Hip Joint with Synthetic Substitute, Open Approach (ICD-10-PCS; CPT 27130; principal; 2017-12-29 11:45)
DX: M16.11 Unilateral primary osteoarthritis, right hip (principal); I10 Essential (primary) hypertension; Z87.891 Personal history of nicotine dependence; R33.9 Retention of urine, unspecified
CPT/HCPCS: 36415; 72170; 85014; 85018; 97110; 97116; 97161; 97530; C1776; C9290; J0690; J1100; J1650; J2250; J2405; J2704; J2765; J3010